=== PATIENT | male | born 2000 | race African-American/Black ===

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

== ENCOUNTER 2020-06-26 15:14 | Emergency (ER) | payer SELFPAY ==
[~2020-06-26] VITALS: Wt 72.6 kg
[2020-06-26 15:28] VITALS: BP 124/66
[2020-06-26] MEDS ORDERED: DOXYCYCLINE100 M3 PO (16:35)
[2020-06-26 16:45] LABS: BILIRUBIN Negative (Negative); BLOOD Negative (Negative); CLARITY Clear (Clear); COLOR Yellow (Yellow); GLUCOSE Negative (Negative); KETONE Negative (Negative); LEUKO ESTERASE Negative (Negative); NITRITE Negative (Negative); PH 7.5 (4.5-8.0)
[2020-06-26 17:05] LABS: EPITHELIAL CELLS 0-2
== END 2020-06-26 17:23 | disposition home or self-care (01) ==
LOC: ED 15:14
PROVIDERS: Physician Assistant
DX: Z20.2 Contact with and (suspected) exposure to infections with a predominantly sexual mode of transmission (principal); Z91.030 Bee allergy status; Z79.899 Other long term (current) drug therapy

== ENCOUNTER 2020-08-22 11:37 | Emergency (ER) | payer OTHER ==
[~2020-08-22] VITALS: Wt 73.9 kg
[~2020-08-22 11:37] MED LIST changes: +DOXYCYCLINE100 M3 PO
[2020-08-22 11:42] VITALS: BP 138/74
[2020-08-22 12:07] LABS: BILIRUBIN Negative (Negative); BLOOD Negative (Negative); CLARITY Clear (Clear); COLOR Yellow (Yellow); GLUCOSE Negative (Negative); KETONE Trace (Negative); LEUKO ESTERASE 1+ (Negative); NITRITE Negative (Negative); SPECIFIC GRAVITY >= 1.030 (1.001-1.030)
[2020-08-22 12:43] LABS: BACTERIA 2+; MUCOUS 1+; WBC TNTC wbc/hpf (0-5)
[2020-09-06] MEDS ORDERED: PREDNISONE20 M1 PO (10:09)
[2020-09-06] MEDS ORDERED: CEPHALEXIN500 M1 PO (10:09)
== END 2020-08-22 12:47 | disposition home or self-care (01) ==
LOC: ED 11:37
PROVIDERS: Emergency Medicine
DX: A64 Unspecified sexually transmitted disease (principal); R30.0 Dysuria; Z91.030 Bee allergy status; Z79.899 Other long term (current) drug therapy

== ENCOUNTER 2020-09-04 20:25 | Emergency (ER) | payer OTHER ==
[~2020-09-04] VITALS: Ht 182.8 cm; Wt 73.9 kg
[2020-09-04 20:34] VITALS: BP 134/73
[2020-09-04] MEDS ORDERED: CEPHALEXIN500 M1 PO (21:30)
[2020-09-04] MEDS ORDERED: PREDNISONE20 M1 PO (21:30)
[2020-09-06] MEDS ORDERED: CEPHALEXIN500 M1 PO (10:09)
[2020-09-06] MEDS ORDERED: PREDNISONE20 M1 PO (10:09)
== END 2020-09-04 21:45 | disposition home or self-care (01) ==
LOC: ED 20:25
DX: J03.00 Acute streptococcal tonsillitis, unspecified (principal)

== ENCOUNTER 2020-11-05 16:33 | Emergency (ER) | payer OTHER ==
[~2020-11-05] VITALS: Ht 182.8 cm; Wt 74.8 kg
[~2020-11-05 16:33] MED LIST changes: +PREDNISONE20 M1 PO
[2020-11-05 16:50] VITALS: BP 132/79
[2020-11-05] MEDS ORDERED: AMOXICILLIN500 M2 PO (17:32)
== END 2020-11-05 17:40 | disposition home or self-care (01) ==
LOC: ED 16:33
DX: J02.9 Acute pharyngitis, unspecified (principal); Z91.030 Bee allergy status

== ENCOUNTER 2021-02-02 19:56 | Emergency (ER) | payer OTHER ==
[~2021-02-02 19:56] MED LIST changes: +AMOXICILLIN500 M2 PO
[2021-02-02 20:00] VITALS: BP 115/62
[2021-02-02 20:37] LABS: BILIRUBIN Negative (Negative); BLOOD Negative (Negative); CLARITY Clear (Clear); COLOR Yellow (Yellow); GLUCOSE Negative (Negative); KETONE Negative (Negative); LEUKO ESTERASE Negative (Negative); NITRITE Negative (Negative); SPECIFIC GRAVITY >= 1.030 (1.001-1.030)
[2021-02-02 20:49] LABS: MUCOUS 1+; WBC 0-2 wbc/hpf (0-5)
== END 2021-02-02 21:15 | disposition home or self-care (01) ==
LOC: ED 19:56
PROVIDERS: Physician Assistant
DX: R30.0 Dysuria (principal); Z91.030 Bee allergy status; Z79.899 Other long term (current) drug therapy

== ENCOUNTER 2021-02-03 02:24 | Emergency (ER) | payer OTHER ==
[2021-02-03 03:15] VITALS: BP 126/86
[2021-02-03 04:04] LABS: BASO # 0.1 10*3/uL (0.0-0.1); EOS # 0.6 10*3/uL (0.0-0.4); EOS % 8.4 % (1.0-4.0); LYMPH # 2.6 10*3/uL (1.3-4.4); LYMPH % 38.9 % (27.0-41.0); MEAN CELL VOLUME 89.9 fl (80.0-94.0); MEAN CORPUSCULAR HGB 30.8 pg (27.0-31.0); MEAN CORPUSCULAR HGB CONC 34.3 g/dl (33.0-37.0); MEAN PLATELET VOLUME 9.8 fl (9.6-12.3); MONO # 0.5 10*3/uL (0.1-1.0); MONO % 7.7 % (3.0-9.0); NEUT % 43.7 % (47.0-73.0); PLATELET COUNT AUTOMATED 233 10*3/uL (130-400); RED BLOOD COUNT 4.67 10*6/uL (4.50-5.90); RED CELL DISTRI WIDTH 11.9 % (0-14.5); WHITE BLOOD COUNT 6.8 10*3/uL (4.8-10.8)
[2021-02-03 04:19] LABS: ALBUMIN 3.7 gm/dl (3.1-4.5); ALKALINE PHOSPHATASE 64 U/L (45-117); BUN 14 mg/dl (7-24); CHLORIDE 110 mmol/L (98-107); CREATININE 1.17 mg/dL (0.70-1.30); POTASSIUM 3.9 mmol/L (3.5-5.1); SGOT/AST 13 IU/L (3-35); SGPT/ALT 13 U/L (12-78); SODIUM 139 mmol/L (136-145); TOTAL PROTEIN 7.2 gm/dL (6.4-8.2)
== END 2021-02-03 05:40 | disposition home or self-care (01) ==
LOC: ED 02:24
PROVIDERS: Emergency Medicine
DX: N13.2 Hydronephrosis with renal and ureteral calculous obstruction (principal); Z91.030 Bee allergy status; Z79.899 Other long term (current) drug therapy

== ENCOUNTER → 2021-06-22 | Outpatient (CLI) | payer OTHER | END | disposition home or self-care (01) | LOC: US 15:00 | PROVIDERS: ATTEND Physician Assistant | DX: I86.1 Scrotal varices (principal); N43.3 Hydrocele, unspecified; N50.89 Other specified disorders of the male genital organs ==

== ENCOUNTER → 2021-07-07 | Outpatient (CLI) | payer OTHER ==
[2021-07-07 19:25] LABS: LDH 129 U/L (87-241)
[2021-07-07 19:28] LABS: BETA-HCG, TUMOR MARKER < 1.0 mIU/mL (<1)
== END | disposition home or self-care (01) ==
LOC: LAB 18:14
PROVIDERS: ATTEND Urology
DX: N50.9 Disorder of male genital organs, unspecified (principal)

== ENCOUNTER → 2023-06-21 | Outpatient (CLI) | payer BC, OTHER ==
[2023-06-21 11:54] LABS: BASO # 0.1 10*3/uL (0.0-0.1); EOS # 0.3 10*3/uL (0.0-0.4); LYMPH # 1.8 10*3/uL (1.3-4.4); LYMPH % 34.6 % (27.0-41.0); MEAN CELL VOLUME 88.4 fl (80.0-94.0); MEAN CORPUSCULAR HGB 31.1 pg (27.0-31.0); MEAN CORPUSCULAR HGB CONC 35.2 g/dl (33.0-37.0); MEAN PLATELET VOLUME 9.9 fl (9.6-12.3); MONO # 0.4 10*3/uL (0.1-1.0); MONO % 6.8 % (3.0-9.0); NEUT # 2.7 10*3/uL (2.3-7.9); NEUT % 51.2 % (47.0-73.0); PLATELET COUNT AUTOMATED 257 10*3/uL (130-400); RED BLOOD COUNT 4.98 10*6/uL (4.50-5.90); WHITE BLOOD COUNT 5.2 10*3/uL (4.8-10.8)
[2023-06-21 12:20] LABS: ALKALINE PHOSPHATASE 67 U/L (46-116); BUN 9 mg/dl (9-23); CHLORIDE 107 mmol/L (98-107); FREE T4 1.05 ng/dl (0.89-1.76); POTASSIUM 4.1 mmol/L (3.4-5.1); TOTAL PROTEIN 7.6 gm/dL (6.0-8.0)
[2023-06-21 12:25] LABS: SGPT/ALT < 7 U/L (10-49)
== END | disposition home or self-care (01) ==
LOC: LAB 11:22
PROVIDERS: ATTEND Nurse Practitioner Family
DX: R53.83 Other fatigue (principal); R25.1 Tremor, unspecified